=== PATIENT | male | born 1970 | race African-American/Black ===

== ENCOUNTER 2022-04-11 18:57 | Emergency (ER) | payer SELFPAY ==
[~2022-04-11] VITALS: Ht 170.2 cm; Wt 68.0 kg
[2022-04-11 23:55] LABS: BASOPHILS % 0.7 % (0.0-2.0); EOSINOPHILS % 1.6 % (0.0-5.0); HEMATOCRIT. 40.4 % (42.0-52.0); HEMOGLOBIN. 13.5 g/dL (14.0-18.0); LYMPHOCYTES % 42.2 % (20.0-50.0); MEAN CORPUSCULAR HEMOGLOBIN 30.9 pg (28.0-32.0); MEAN CORPUSCULAR VOLUME 92.1 fL (80.0-94.0); MEAN PLATELET VOLUME 7.1 fl (7.4-10.4); MONOCYTES % 9.7 % (2.0-8.0); NEUTROPHILS % 45.8 % (40.0-76.0); PLATELET 221 x1000/uL (130-400); RED BLOOD CELL COUNT 4.39 mill/uL (4.7-6.1); RED CELL DISTRIBUTION WIDTH 14.2 % (11.6-14.6)
[2022-04-12 00:02] LABS: CHLORIDE 105 mEq/L (98-107)
[2022-04-12 00:53] VITALS: BP 112/78
== END 2022-04-12 00:53 | disposition home or self-care (01) ==
LOC: ER 18:57
DX: R63.4 Abnormal weight loss (principal); Z68.23 Body mass index [BMI] 23.0-23.9, adult; R42 Dizziness and giddiness; K59.00 Constipation, unspecified
CPT/HCPCS: 36415; 80053; 85025; 99283